=== PATIENT | female | born 1995 | race Caucasian/White ===

== ENCOUNTER 2018-05-03 15:53 | Emergency (ER) | payer MEDICAID ==
[~2018-05-03] VITALS: Ht 154.9 cm; Wt 85.3 kg
[2018-05-03 16:05] VITALS: Ht 154.9 cm; Wt 85.3 kg
[2018-05-03 17:31] VITALS: BP 123/80
== END 2018-05-03 17:31 | disposition home or self-care (01) ==
LOC: ED 15:53
DX: G51.0 Bell's palsy (principal); Z98.890 Other specified postprocedural states